=== PATIENT | female | born 1970 | race Caucasian/White ===

== ENCOUNTER 2022-02-21 14:10 | Outpatient (REF) | payer OTHER, SELFPAY ==
[2022-02-23 10:51] LABS: COVID-19 RT-PCR UVMMC Result Negative (Negative)
== END 2022-02-21 14:11 | disposition home or self-care (01) ==
LOC: LBN 14:10
PROVIDERS: Visit Provider Physician Assistant Medical
DX: J34.89 Other specified disorders of nose and nasal sinuses (principal); Z20.822 Contact with and (suspected) exposure to COVID-19
CPT/HCPCS: U0003; 87081

== ENCOUNTER 2024-02-03 04:52 | Outpatient (CLI) | payer OTHER, SELFPAY ==
[2024-02-03 14:52] LABS: Anion Gap 9.1 mmol/L (3-11); BUN 14 mg/dL (7-18); CO2 28.9 mmol/L (21.0-32.0); CREATININE 0.8 mg/dL (0.55-1.02); Calcium 9.8 mg/dL (8.5-10.1); Calculated LDL 139 mg/dL (<100); Chloride 103 mmol/L (98-107); Cholesterol 243 mg/dL (<200); Estimated GFR 86.96 (mL/min/1.73m2); Glucose 108 mg/dL (74-106); HDL Cholesterol 83 mg/dL (40-60); Potassium 4.2 mmol/L (3.5-5.1); Sodium 141 mmol/L (136-145); TSH (W/Ref FT4) 0.03 uIU/mL (0.36-3.74); Triglyceride 105 mg/dL (<150)
[2024-02-03 15:10] LABS: Glucose 109 mg/dL (74-106)
[2024-02-03 17:08] LABS: FREE T4 1.28 ng/dL (0.76-1.46)
== END 2024-02-03 04:53 | disposition home or self-care (01) ==
LOC: LBO 04:52
PROVIDERS: Absent Provider Nurse Practitioner Family; PCP Nurse Practitioner Family; Referring Provider Nurse Practitioner Family; Visit Provider Nurse Practitioner Family
DX: E03.9 Hypothyroidism, unspecified (principal); I10 Essential (primary) hypertension; Z00.00 Encounter for general adult medical examination without abnormal findings
CPT/HCPCS: 36415; 80048; 80061; 82947; 84439; 84443

== ENCOUNTER 2024-03-03 08:46 | Outpatient (REF) | payer OTHER, SELFPAY | END 2024-03-03 08:47 | disposition home or self-care (01) | LOC: LBN 08:46 | PROVIDERS: PCP Nurse Practitioner Family; Visit Provider Nurse Practitioner Family | DX: N89.8 Other specified noninflammatory disorders of vagina (principal); Z12.4 Encounter for screening for malignant neoplasm of cervix; Z11.51 Encounter for screening for human papillomavirus (HPV) | CPT/HCPCS: 88142; 87480; 87510; 87624; 87660 ==

== ENCOUNTER 2024-04-07 08:17 | Outpatient (CLI) | payer OTHER, SELFPAY ==
[2024-04-08 10:27] LABS: Hepatitis C Ab w Rflx HCV PCR Negative (Negative)
[2024-04-08 10:31] LABS: HIV-1/2 Ag & Ab Screen Negative (Negative)
== END 2024-04-07 08:18 | disposition home or self-care (01) ==
LOC: LBO 08:17
PROVIDERS: PCP Nurse Practitioner Family; Visit Provider Nurse Practitioner Family
DX: E03.9 Hypothyroidism, unspecified (principal); Z00.00 Encounter for general adult medical examination without abnormal findings
CPT/HCPCS: 36415; 86803; 87389

== ENCOUNTER 2024-05-14 08:18 | Outpatient (CLI) | payer OTHER, SELFPAY ==
[2024-05-14 10:46] LABS: TSH (W/Ref FT4) 1.84 uIU/mL (0.36-3.74)
== END 2024-05-14 08:19 | disposition home or self-care (01) ==
LOC: LBO 08:18
PROVIDERS: PCP Nurse Practitioner Family; Visit Provider Nurse Practitioner Family
DX: E03.9 Hypothyroidism, unspecified (principal)
CPT/HCPCS: 36415; 84443